=== PATIENT | female | born 1995 | race Caucasian/White ===

== ENCOUNTER 2017-05-04 12:50 | Emergency (ER) | payer OTHER ==
[~2017-05-04] VITALS: Ht 157.5 cm; Wt 88.5 kg
[~2017-05-04 12:50] MED LIST: ABILIFY 2 MG2 M1 PO; TOPAMAX100 MG PO
[2017-05-04 12:53] VITALS: BP 130/74
[2017-05-04] MEDS ORDERED: KEFLEX500 MG PO (13:44)
== END 2017-05-04 13:57 | disposition home or self-care (01) ==
LOC: ER 12:50
DX: R21 Rash and other nonspecific skin eruption (principal); F10.99 Alcohol use, unspecified with unspecified alcohol-induced disorder; Z86.59 Personal history of other mental and behavioral disorders; Z88.8 Allergy status to other drugs, medicaments and biological substances